=== PATIENT | female | born 1955 | race Caucasian/White ===

== ENCOUNTER 2020-11-13 05:58 | Inpatient (IN) ==
[2020-11-07 11:17] LABS: Basophils # 0.1 10*3/uL (0.0-0.2); Basophils % 0.7 % (0.0-0.8); Eosinophils # 0.2 10*3/uL (0.0-0.87); Eosinophils % 3.5 % (0.00-10.9); Hemoglobin 12.3 GM/DL (12.0-16.0); Immature Granulocytes % 0.7 %; Immature Granulocytes Absolute 0.05 #; Lymphocytes # 2.1 10*3/uL (1.4-4.0); Lymphocytes % 30.6 % (21.3-54.2); Mean Corpuscular HGB Conc 31.5 GM/DL (32-36); Mean Corpuscular Volume 81.6 FL (87-102); Mean Platelet Volume 9.7 FL (9.6-12.0); Monocytes % 6.5 % (1.7-12.7); Platelet Count 432 T/CUMM (130-400); Red Blood Count 4.78 MC/CUMM (3.8-5.5); Red Cell Distribution Width 15.3 % (9.3-17.3); White Blood Count 6.9 T/CUMM (4-12)
[2020-11-07 11:27] LABS: PT Patient Result 10.5 SECS (9.8-11.9); Partial Thromboplastin Time 26.5 SECS (23.9-33.8)
[2020-11-07 11:38] LABS: Albumin 4.1 G/DL (3.4-5.0); Bilirubin,Total 0.6 MG/DL (0.2-1.0); Calcium 9.9 MG/DL (8.5-10.1); Osmolality,Calculated 283.4 MOS/KG (273-304)
[2020-11-13] MEDS ORDERED: cefTRIAXone 1,000 MG in SYRINGE 1 EACH IV ONE (06:00)
[2020-11-13] MEDS ORDERED: LIDOCAINE 2% 5 ML VIAL ONE (07:41)
[2020-11-13] MEDS ORDERED: propofoL 200 MG/20 ML VIAL IV ONE (07:41)
[2020-11-13] MEDS ORDERED: fentaNYL 100 MCG/2 ML VIAL ONE ×2 (07:41→09:51)
[2020-11-13] MEDS ORDERED: MIDAZOLAM 2 MG/2 ML VIAL ONE (07:41)
[2020-11-13] MEDS ORDERED: FAMOTIDINE 20 MG TABLET PO ONE (07:42)
[2020-11-13] MEDS ORDERED: ROCURONIUM 50 MG/5 ML VIAL IV ONE (07:42)
[2020-11-13] MEDS ORDERED: SUCCINYLCHOLINE 200 MG/10 ML VIAL ONE (07:42)
[2020-11-13] MEDS ORDERED: DIAZEPAM 5 MG TABLET PO ONE (07:42)
[2020-11-13] MEDS: LACTATED RINGERS 1,000 ML IV SCH ×2 (08:20→09:30)
[2020-11-13] MEDS ORDERED: ePHEDrine 50 MG/ML VIAL ONE (08:51)
[2020-11-13] MEDS ORDERED: SEVOFLURANE 1 UNIT/15 MINUTE INH ONE ×11 (09:50→11:24)
[2020-11-13] MEDS ORDERED: LACTULOSE 20 GM/30 ML UDCUP PO PRN (11:29)
[2020-11-13] MEDS ORDERED: PROMETHAZINE 25 MG/1 ML VIAL IM PRN (11:29)
[2020-11-13] MEDS ORDERED: ONDANSETRON 4 MG/2 ML VIAL IV PRN ×2 (11:29→12:20)
[2020-11-13] MEDS ORDERED: NITROGLYCERIN SL 0.4 MG TABLET SL PRN (11:34)
[2020-11-13] MEDS ORDERED: DEXTROSE 50% 25 GM/50 ML VIAL IV PRN (11:37)
[2020-11-13] MEDS ORDERED: GLUCAGON 1 MG VIAL IM PRN (11:37)
[2020-11-13 12:08] LABS: Bilirubin,Urine Negative (Negative); Blood, Urine Small mg/dL (Negative); Glucose,Urine (UA) Negative (Negative); Ketones,Urine Negative (Negative); Mucus,Urine Occasional /LPF (Occasional); Nitrite,Urine Negative (Negative); Protein,Urine Negative; RBC,Urine 5 /HPF (0-4); Squamous Epithelial Cell,Urine Occasional /HPF (0-10); Urine Appearance CLEAR (Clear); Urine Color Yellow (Yellow); Urine Specific Gravity 1.011 (1.001-1.035); Urine Urobilinogen < 2.0 EU/DL (0.2-1.0); WBC,Urine 36 /HPF (0-6)
[2020-11-13] MEDS: HYDROmorphone 2 MG/1 ML VIAL IV PRN ×5 (12:25→19:21)
[2020-11-13] MEDS ORDERED: PHENYLEPHRINE 1 MG/10 ML SYRINGE IV ONE (12:44)
[2020-11-13] MEDS ORDERED: NEOSTIGMINE 10 MG/10 ML VIAL ONE (12:44)
[2020-11-13 13:03] LABS: Basophils % 0.3 % (0.0-0.8); Eosinophils # 0.1 10*3/uL (0.0-0.87); Eosinophils % 0.9 % (0.00-10.9); Hematocrit 35.4 VOL% (35.7-47.0); Hemoglobin 11.3 GM/DL (12.0-16.0); Immature Granulocytes % 0.5 %; Immature Granulocytes Absolute 0.07 #; Lymphocytes % 6.9 % (21.3-54.2); Mean Corpuscular HGB Conc 31.9 GM/DL (32-36); Mean Corpuscular Volume 81.6 FL (87-102); Monocytes % 1.1 % (1.7-12.7); Neutrophils % 90.3 % (38.7-73.9); Platelet Count 338 T/CUMM (130-400); Red Blood Count 4.34 MC/CUMM (3.8-5.5); Red Cell Distribution Width 15.8 % (9.3-17.3); White Blood Count 14.8 T/CUMM (4-12)
[2020-11-13] MEDS: SODIUM CHLORIDE 0.9% 1,000 ML IV SCH ×2 (13:15→21:24)
[2020-11-13 13:26] LABS: Calcium 8.8 MG/DL (8.5-10.1); Osmolality,Calculated 284.4 MOS/KG (273-304)
[2020-11-13] MEDS: ACETAMINOPHEN 325 MG TABLET PO SCH ×3 (14:08→23:51)
[2020-11-13] MEDS: cefTRIAXone 1,000 MG in SYRINGE 1 EACH IV SCH (14:27)
[2020-11-13] MEDS ORDERED: AMMONIUM ALUM BLADDERIRR SCH (14:30)
[2020-11-13] MEDS ORDERED: SODIUM CHLORIDE 0.9% BLADDERIRR SCH (14:30)
[2020-11-13] MEDS: INSULIN REGULAR 100 UNIT/ML SUBCUT SCH ×2 (16:10→21:24)
[2020-11-14] MEDS: oxyCODONE/ACETAMINOPHEN 5-325 MG TABLET PO PRN ×3 (03:40→21:07)
[2020-11-14 05:37] LABS: Basophils % 0.3 % (0.0-0.8); Eosinophils % 0.2 % (0.00-10.9); Hematocrit 29.7 VOL% (35.7-47.0); Hemoglobin 9.5 GM/DL (12.0-16.0); Immature Granulocytes % 0.2 %; Immature Granulocytes Absolute 0.02 #; Lymphocytes # 0.9 10*3/uL (1.4-4.0); Lymphocytes % 9.7 % (21.3-54.2); Mean Platelet Volume 9.4 FL (9.6-12.0); Monocytes % 6.5 % (1.7-12.7); Neutrophils % 83.1 % (38.7-73.9); Platelet Count 281 T/CUMM (130-400); Red Blood Count 3.62 MC/CUMM (3.8-5.5); Red Cell Distribution Width 15.6 % (9.3-17.3); White Blood Count 9.5 T/CUMM (4-12)
[2020-11-14 05:49] LABS: Calcium 8.3 MG/DL (8.5-10.1); Osmolality,Calculated 279.4 MOS/KG (273-304)
[2020-11-14] MEDS: ACETAMINOPHEN 325 MG TABLET PO SCH ×3 (06:19→21:05)
[2020-11-14] MEDS: SODIUM CHLORIDE 0.9% 1,000 ML IV SCH (06:19)
[2020-11-14] MEDS ORDERED: POTASSIUM CHLORIDE 20 MEQ TABLET PO ONE (09:00)
[2020-11-14] MEDS: MULTIVITAMIN (CENTRUM) TABLET PO SCH (09:04)
[2020-11-14] MEDS: SIMVASTATIN 10 MG TABLET PO SCH (09:04)
[2020-11-14] MEDS: METOPROLOL SUCCINATE XL 50 MG TABLET PO SCH (09:05)
[2020-11-14] MEDS: ASPIRIN EC 81 MG TABLET PO SCH (09:05)
[2020-11-14] MEDS: FENOFIBRATE 48 MG TABLET PO SCH (09:05)
[2020-11-14] MEDS: FAMOTIDINE 20 MG TABLET PO SCH (09:05)
[2020-11-14] MEDS: SERTRALINE 50 MG TABLET PO SCH (09:06)
[2020-11-14] MEDS: SOLIFENACIN 5 MG TABLET PO SCH (09:06)
[2020-11-14] MEDS: INSULIN REGULAR 100 UNIT/ML SUBCUT SCH ×4 (09:11→21:04)
[2020-11-14] MEDS: SODIUM CHLOR 0.9% KCL 20 MEQ 20 MEQ/1,000 ML BAG IV SCH (09:16)
[2020-11-14] MEDS: cefTRIAXone 1,000 MG in SYRINGE 1 EACH IV SCH (12:05)
[2020-11-14] MEDS: HYDROmorphone 2 MG/1 ML VIAL IV PRN (12:08)
[2020-11-14 12:48] LABS: Ferritin 38.3 ng/ml (8-252)
[2020-11-14 13:13] LABS: Folate > 24.0 NG/ML (5.4-24.0); Vitamin B12 > 2000 PG/ML (211-911)
[2020-11-14 13:22] LABS: Basophils % 0.3 % (0.0-0.8); Eosinophils % 0.5 % (0.00-10.9); Hematocrit 30.2 VOL% (35.7-47.0); Hemoglobin 9.6 GM/DL (12.0-16.0); Immature Granulocytes % 0.4 %; Immature Granulocytes Absolute 0.03 #; Lymphocytes # 0.8 10*3/uL (1.4-4.0); Lymphocytes % 10.7 % (21.3-54.2); Mean Corpuscular HGB Conc 31.8 GM/DL (32-36); Mean Corpuscular Volume 82.5 FL (87-102); Monocytes % 7.2 % (1.7-12.7); Neutrophils % 80.9 % (38.7-73.9); Platelet Count 268 T/CUMM (130-400); Red Blood Count 3.66 MC/CUMM (3.8-5.5); Red Cell Distribution Width 15.9 % (9.3-17.3); White Blood Count 7.6 T/CUMM (4-12)
[2020-11-14 13:47] LABS: Calcium 8.5 MG/DL (8.5-10.1); Osmolality,Calculated 278.4 MOS/KG (273-304)
[2020-11-14] MEDS: FERRIC GLUCONATE COMPLEX 125 MG in SODIUM CHLORIDE 0.9% 100 ML IV SCH (17:42)
[2020-11-15] MEDS: ACETAMINOPHEN 325 MG TABLET PO SCH ×4 (03:30→21:36)
[2020-11-15 05:35] LABS: Basophils % 0.2 % (0.0-0.8); Eosinophils # 0.1 10*3/uL (0.0-0.87); Eosinophils % 1.5 % (0.00-10.9); Hematocrit 28.8 VOL% (35.7-47.0); Hemoglobin 9.2 GM/DL (12.0-16.0); Immature Granulocytes % 0.6 %; Immature Granulocytes Absolute 0.05 #; Lymphocytes # 1.1 10*3/uL (1.4-4.0); Lymphocytes % 12.6 % (21.3-54.2); Mean Corpuscular HGB Conc 31.9 GM/DL (32-36); Mean Corpuscular Volume 82.1 FL (87-102); Mean Platelet Volume 9.2 FL (9.6-12.0); Monocytes % 10.1 % (1.7-12.7); Platelet Count 254 T/CUMM (130-400); Red Blood Count 3.51 MC/CUMM (3.8-5.5); Red Cell Distribution Width 15.9 % (9.3-17.3); White Blood Count 8.6 T/CUMM (4-12)
[2020-11-15 05:51] LABS: Calcium 8.8 MG/DL (8.5-10.1); Osmolality,Calculated 279.4 MOS/KG (273-304)
[2020-11-15 06:00] LABS: Hypochromasia 1+; Microcytosis 1+; Ovalocytes Slight; Platelet Estimate Adequate
[2020-11-15] MEDS: SOLIFENACIN 5 MG TABLET PO SCH (08:46)
[2020-11-15] MEDS: SERTRALINE 50 MG TABLET PO SCH (08:46)
[2020-11-15] MEDS: FENOFIBRATE 48 MG TABLET PO SCH (08:46)
[2020-11-15] MEDS: ASPIRIN EC 81 MG TABLET PO SCH (08:46)
[2020-11-15] MEDS: FERRIC GLUCONATE COMPLEX 125 MG in SODIUM CHLORIDE 0.9% 100 ML IV SCH (08:47)
[2020-11-15] MEDS: MULTIVITAMIN (CENTRUM) TABLET PO SCH (08:47)
[2020-11-15] MEDS: METOPROLOL SUCCINATE XL 50 MG TABLET PO SCH (08:47)
[2020-11-15] MEDS: FAMOTIDINE 20 MG TABLET PO SCH (08:47)
[2020-11-15] MEDS: cefTRIAXone 1,000 MG in SYRINGE 1 EACH IV SCH (08:48)
[2020-11-15] MEDS: SODIUM CHLOR 0.9% KCL 20 MEQ 20 MEQ/1,000 ML BAG IV SCH (08:48)
[2020-11-15] MEDS: INSULIN REGULAR 100 UNIT/ML SUBCUT SCH ×4 (10:16→21:42)
[2020-11-15] MEDS: oxyCODONE/ACETAMINOPHEN 5-325 MG TABLET PO PRN ×2 (13:29→21:37)
[2020-11-16] MEDS: ACETAMINOPHEN 325 MG TABLET PO SCH ×5 (03:00→21:09)
[2020-11-16 05:50] LABS: Basophils % 0.4 % (0.0-0.8); Eosinophils # 0.2 10*3/uL (0.0-0.87); Eosinophils % 3.3 % (0.00-10.9); Hematocrit 28.6 VOL% (35.7-47.0); Hemoglobin 9.3 GM/DL (12.0-16.0); Immature Granulocytes % 0.7 %; Immature Granulocytes Absolute 0.05 #; Lymphocytes # 1.6 10*3/uL (1.4-4.0); Lymphocytes % 23.5 % (21.3-54.2); Mean Corpuscular HGB Conc 32.5 GM/DL (32-36); Mean Platelet Volume 9.8 FL (9.6-12.0); Monocytes % 9.6 % (1.7-12.7); Neutrophils % 62.5 % (38.7-73.9); Platelet Count 265 T/CUMM (130-400); Red Blood Count 3.53 MC/CUMM (3.8-5.5); Red Cell Distribution Width 15.9 % (9.3-17.3)
[2020-11-16 06:09] LABS: Calcium 8.8 MG/DL (8.5-10.1); Osmolality,Calculated 280.3 MOS/KG (273-304)
[2020-11-16] MEDS: SODIUM CHLOR 0.9% KCL 20 MEQ 20 MEQ/1,000 ML BAG IV SCH (06:31)
[2020-11-16] MEDS: INSULIN REGULAR 100 UNIT/ML SUBCUT SCH ×4 (07:40→20:25)
[2020-11-16] MEDS: cefTRIAXone 1,000 MG in SYRINGE 1 EACH IV SCH (08:30)
[2020-11-16] MEDS: METOPROLOL SUCCINATE XL 50 MG TABLET PO SCH (08:31)
[2020-11-16] MEDS: SIMVASTATIN 10 MG TABLET PO SCH (08:31)
[2020-11-16] MEDS: FAMOTIDINE 20 MG TABLET PO SCH (08:31)
[2020-11-16] MEDS: ASPIRIN EC 81 MG TABLET PO SCH (08:31)
[2020-11-16] MEDS: SERTRALINE 50 MG TABLET PO SCH (08:31)
[2020-11-16] MEDS: FENOFIBRATE 48 MG TABLET PO SCH (08:31)
[2020-11-16] MEDS: SOLIFENACIN 5 MG TABLET PO SCH (08:31)
[2020-11-16] MEDS: LINACLOTIDE 145 MCG CAPSULE PO SCH (08:32)
[2020-11-16] MEDS: MULTIVITAMIN (CENTRUM) TABLET PO SCH (08:32)
[2020-11-16] MEDS: FERRIC GLUCONATE COMPLEX 125 MG in SODIUM CHLORIDE 0.9% 100 ML IV SCH (08:32)
[2020-11-16] MEDS: oxyCODONE/ACETAMINOPHEN 5-325 MG TABLET PO PRN (08:38)
[2020-11-16] MEDS ORDERED: BUPIVACAINE MPF 0.25% 30 ML VIAL ONE (11:34)
[2020-11-16] MEDS ORDERED: TISSUE ADHESIVE 1 EACH APPLICATOR TOP ONE (11:35)
[2020-11-16 11:46] LABS: Stone Analysis Interpretation SEE COMMENTS; Stone Source Kidney
[2020-11-16] MEDS ORDERED: fentaNYL 100 MCG/2 ML VIAL ONE (12:23)
[2020-11-16] MEDS ORDERED: PHENYLEPHRINE 1 MG/10 ML SYRINGE IV ONE (12:45)
[2020-11-16] MEDS ORDERED: GENTAMICIN 80 MG/2 ML VIAL ONE (12:50)
[2020-11-16] MEDS ORDERED: SUCCINYLCHOLINE 200 MG/10 ML VIAL ONE (13:09)
[2020-11-16] MEDS ORDERED: SEVOFLURANE 1 UNIT/15 MINUTE INH ONE ×10 (13:09→14:52)
[2020-11-16] MEDS ORDERED: LIDOCAINE 2% 5 ML VIAL ONE (13:09)
[2020-11-16] MEDS ORDERED: ONDANSETRON 4 MG/2 ML VIAL ONE (13:09)
[2020-11-16] MEDS ORDERED: ETOMIDATE 40 MG/20 ML VIAL IV ONE (13:09)
[2020-11-16] MEDS ORDERED: ROCURONIUM 50 MG/5 ML VIAL IV ONE (13:09)
[2020-11-16] MEDS ORDERED: LACTATED RINGERS 1,000 ML IV ONE (14:46)
[2020-11-16] MEDS ORDERED: GLUCAGON 1 MG VIAL IM PRN (15:02)
[2020-11-16] MEDS ORDERED: DEXTROSE 50% 25 GM/50 ML VIAL IV PRN (15:02)
[2020-11-16 15:27] LABS: Basophils % 0.3 % (0.0-0.8); Eosinophils # 0.2 10*3/uL (0.0-0.87); Eosinophils % 3.1 % (0.00-10.9); Hematocrit 32.9 VOL% (35.7-47.0); Hemoglobin 10.1 GM/DL (12.0-16.0); Immature Granulocytes % 0.7 %; Immature Granulocytes Absolute 0.05 #; Lymphocytes # 1.8 10*3/uL (1.4-4.0); Lymphocytes % 24.6 % (21.3-54.2); Mean Corpuscular HGB Conc 30.7 GM/DL (32-36); Mean Corpuscular Volume 83.9 FL (87-102); Mean Platelet Volume 9.3 FL (9.6-12.0); Monocytes % 7.6 % (1.7-12.7); Neutrophils % 63.7 % (38.7-73.9); Platelet Count 304 T/CUMM (130-400); Red Blood Count 3.92 MC/CUMM (3.8-5.5); Red Cell Distribution Width 15.9 % (9.3-17.3); White Blood Count 7.1 T/CUMM (4-12)
[2020-11-16 15:49] LABS: Osmolality,Calculated 279.3 MOS/KG (273-304)
[2020-11-16] MEDS: HYDROmorphone 2 MG/1 ML VIAL IV PRN (21:09)
[2020-11-17] MEDS: ACETAMINOPHEN 325 MG TABLET PO SCH ×2 (02:32→09:32)
[2020-11-17 05:44] LABS: Basophils % 0.4 % (0.0-0.8); Eosinophils # 0.3 10*3/uL (0.0-0.87); Eosinophils % 3.5 % (0.00-10.9); Hematocrit 28.1 VOL% (35.7-47.0); Hemoglobin 8.9 GM/DL (12.0-16.0); Immature Granulocytes % 0.5 %; Immature Granulocytes Absolute 0.04 #; Lymphocytes # 1.6 10*3/uL (1.4-4.0); Lymphocytes % 20.4 % (21.3-54.2); Mean Corpuscular HGB Conc 31.7 GM/DL (32-36); Mean Corpuscular Volume 81.9 FL (87-102); Mean Platelet Volume 9.2 FL (9.6-12.0); Monocytes % 9.2 % (1.7-12.7); Platelet Count 292 T/CUMM (130-400); Red Blood Count 3.43 MC/CUMM (3.8-5.5); White Blood Count 7.8 T/CUMM (4-12)
[2020-11-17 06:07] LABS: Calcium 8.9 MG/DL (8.5-10.1); Osmolality,Calculated 277.4 MOS/KG (273-304)
[2020-11-17] MEDS: SODIUM CHLOR 0.9% KCL 20 MEQ 20 MEQ/1,000 ML BAG IV SCH (06:09)
[2020-11-17 06:10] LABS: Osmolality,Calculated 276.5 MOS/KG (273-304)
[2020-11-17] MEDS: INSULIN REGULAR 100 UNIT/ML SUBCUT SCH ×2 (08:49→13:27)
[2020-11-17] MEDS: METOPROLOL SUCCINATE XL 50 MG TABLET PO SCH (09:32)
[2020-11-17] MEDS: SOLIFENACIN 5 MG TABLET PO SCH (09:32)
[2020-11-17] MEDS: FENOFIBRATE 48 MG TABLET PO SCH (09:32)
[2020-11-17] MEDS: FAMOTIDINE 20 MG TABLET PO SCH (09:32)
[2020-11-17] MEDS: ASPIRIN EC 81 MG TABLET PO SCH (09:32)
[2020-11-17] MEDS: cefTRIAXone 1,000 MG in SYRINGE 1 EACH IV SCH (09:33)
[2020-11-17] MEDS: SERTRALINE 50 MG TABLET PO SCH (09:33)
[2020-11-17] MEDS: MULTIVITAMIN (CENTRUM) TABLET PO SCH (09:33)
[2020-11-17] MEDS: LINACLOTIDE 145 MCG CAPSULE PO SCH (09:34)
[2020-11-17 12:28] VITALS: BP 105/58
== END 2020-11-17 13:50 | disposition home or self-care (01) | DRG 660 ==
LOC: N.RAD 05:58 → N.SDSINP 05:59 → N.5E 13:20
PROVIDERS: ADMIT Surgery; ATTEND Surgery